=== PATIENT | female | born 1980 | race Caucasian/White ===

== ENCOUNTER 2017-07-15 08:54 | Emergency (ER) | END 2017-07-15 12:45 | disposition home or self-care (01) ==

== ENCOUNTER 2017-09-02 13:22 | Emergency (ER) | END 2017-09-02 17:39 | disposition home or self-care (01) ==

== ENCOUNTER 2018-03-09 13:57 | Emergency (ER) | payer MEDICAID ==
[~2018-03-09] VITALS: Wt 80.6 kg
[~2018-03-09 13:57] MED LIST: ACET500C5 PO; BISM262O23 PO; DICY10CA40 PO; ONDA4TAB8 PO
[2018-03-09 14:02] VITALS: BP 158/99; PULSE 99; RESP 20
[2018-03-09] MEDS ORDERED: KETOROLAC 30 MG INJ IM STA (14:28)
[2018-03-09] MEDS ORDERED: HYDROCODONE/APAP (5/325) TAB PO ONE (14:30)
[2018-03-09] MEDS ORDERED: TRAM50TA2 PO (15:32)
[2018-03-09] MEDS ORDERED: IBUP-1542 PO (15:32)
--- NOTE | 2018-03-09 15:36 | ERD ---
ER Documentation Chief Complaint Chief Complaint L shoulder pain start AM; rad to neck, upper back. 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 Started after awakening. She denies any fevers, shortness of breath, deficits or weakness. ROS All systems reviewed and are negative except as per history of present illness. Medications Home Meds Active Scripts Ibuprofen* (Motrin*) 600 Mg Tab, 600 MG PO Q6, #20 TAB Prov:TYRELL PITT MD 03/09/18 Tramadol HCl (Tramadol HCl) 50 Mg Tablet, 50 MG PO Q4 PRN for PAIN, #15 TAB Prov:TYRELL PITT MD 03/09/18 Dicyclomine HCl (Dicyclomine HCl) 10 Mg Capsule, 10 MG PO QID, #20 Prov:SIL MATHEW-C 09/02/17 Acetaminophen* (Tylophen*) 500 Mg Capsule, 1 CAP PO Q6H PRN for PAIN AND OR ELEVATED TEMP, #30 CAP Prov:SIL MATHEWC 09/02/17 Ondansetron Hcl* (Zofran*) 4 Mg Tablet, 4 MG PO Q6H for NAUSEA AND/OR VOMITING, #30 TAB Prov:SIL MATHEWC 07/15/17 Acetaminophen* (Tylophen*) 500 Mg Capsule, 1 CAP PO Q6H PRN for PAIN AND OR ELEVATED TEMP, #30 CAP Prov:SIL MATHEW-C 07/15/17 Bismuth Subsalicylate* (Pepto-Bismol*) 262 Mg/15 Ml Oral.susp, 30 ML PO Q6H PRN for DIARRHEA for 3 Days, ML Prov:SIL MATHEWC 07/15/17 Allergies Allergies: Coded Allergies: No Known Drug Allergies (Verified Allergy, Mild, 07/15/17) PMhx/Soc History of Surgery: No Anesthesia Reaction: No Hx Neurological Disorder: No Hx Respiratory Disorders: No Hx Cardiac Disorders: Yes (HTN ) Hx Psychiatric Problems: No Hx Miscellaneous Medical Probl: No Hx Alcohol Use: No Hx Substance Use: No Hx Tobacco Use: No FmHx Family History: No diabetes, No coronary disease, No other Physical Exam Vitals Vital Signs Date Temp Pulse Resp B/P (MAP) Pulse Ox O2 O2 Flow FiO2 Time Delivery Rate 03/09/18 98.9 99 20 158/99 98 14:02 (118) Physical Exam Const: No acute distress Head: Atraumatic Eyes: Normal Conjunctiva ENT: Normal External Ears, Nose and Mouth. Neck: Full range of motion. No meningismus. Tender left cervical paraspinous area. Resp: Clear to auscultation bilaterally Cardio: Regular rate and rhythm, no murmurs Abd: Soft, non tender, non distended. Normal bowel sounds Skin: No petechiae or rashes Back: No midline or flank tenderness Ext: No cyanosis, or edema. Pulses 2+ distally. Neur: Awake and alert Psych: Normal Mood and Affect Results 24 hrs Laboratory Tests Test 03/09/18 14:55 POC Beta HCG, Qualitative NEGATIVE Current Medications Medications Dose Sig/Gal Start Time Status Last (Trade) Ordered Route PRN Stop Time Admin Dose Reason Admin Ketorolac 30 mg ONCE STAT 03/09/18 DC Tromethamine IM 14:28 (Toradol) 03/09/18 14:29 1 tab ONCE ONCE 03/09/18 DC 03/09/18 Acetaminophen PO 14:30 14:51 / 03/09/18 14:31 Hydrocodone Bitart (Hastings (5/325)) Procedures/MDM EKG: Rate/Rhythm: Normal Sinus Rhythm. Rate equals 55 QRS, ST, T-waves: No changes consistent w/ acute ischemia Impression: No evidence of ischemia or arrhythmia. Impression-normal EKG X-ray C spine 3V Interpreted by me: Bones: No fracture Joints: No dislocation Foreign body: None. Impression-normal 2 view C-spine x-ray Patient was in considerable pain and given Toradol 30 mg IM and Hastings 5 g by mouth. Patient presents with signs and symptoms of cervical radicular pain without evidence of deficits, signs of bacterial infection,, cardiac chest pain or findings to suggest additional emergent cause. She will be treated with ibuprofen, tramadol, primary care follow-up and return precautions. The patient was stable with no new complaints during the ER course. Clinically, there is no current evidence to suggest meningitis, sepsis, acute abdomen, pneumonia, stroke, acute coronary syndrome, pulmonary embolism, aortic dissection or any other emergent condition appearing to require further evaluation or hospitalization. Patient counseled regarding my diagnostic impression and care plan. Prior to discharge all questions answered. Pt agrees with treatment plan and understands strict return precautions. Pt is instructed to follow up with primary care provider within 24-48 hours. Precautionary instructions provided including instructions to return to the ER if not improving or for any worsening or changing symptoms or concerns. Departure Diagnosis: Primary Impression: Cervical radicular pain Condition: Stable Patient Instructions: Radiculopathy, Cervical [facility] Usted se madden hecho un examen mdico de control que le indica que no est en lissett condicin que requiera tratamiento urgente en el Departamento de Emergencia. Un estudio ms profundo y el tratamiento de ulrich condicin pueden esperar sin ningn riesgo hasta que usted sea atendida/o en el consultorio de ulrich mdico o lissett clnica. Es responsabilidad suya arreglar lissett deanna para el seguimiento del celena. MANEJO DE CONDICIONES NO URGENTES EN EL FUTURO 1) Si usted tiene un mdico de atencin primaria: Usted debera llamar a ulrich mdico de atencin primaria antes de venir al departamento de emergencia. Despus de las horas de consultorio, ulrich doctor o ulrich asociado/a est disponible por telfono. El mdico o enfermero de heron en el servicio telefnico puede asesorarle por rekha medio para atender el problema, o celena contrario se puede programar lissett deanna. 2) Si usted no tiene un mdico de atencin primaria: Llame al mdico o clnica de referencia que aparece abajo valente las horas de consultorio para hacer lissett deanna para que le vean. CLINICAS: [facility] 715 [phone] [address] [facility] 066 [phone] [address] [facility] [phone] [facility] [phone] [place] [id number] [phone] [facility]. [phone] [id number] Additional Instructions: Examines normal hoy. Cheque otro vez con ulrich doctor primario en el proximo gaviria or regresa para mas o nueva simptomas. TYRELL PITT MD Mar 09, 2018 15:36
== END 2018-03-09 15:53 | disposition home or self-care (01) ==
LOC: FTE 13:57
DX: M54.12 Radiculopathy, cervical region (principal); I10 Essential (primary) hypertension
CPT/HCPCS: 72040; 81025; 93005; 96372; J1885; Z7502; Z7610